=== PATIENT | male | born 1980 | race Hispanic/Latino ===

== ENCOUNTER 2021-04-25 17:06 | Observation (INO) | payer OTHER ==
[~2021-04-25] VITALS: Ht 165.1 cm; Wt 51.9 kg
[2021-04-25 17:08] VITALS: BP 107/66
[2021-04-25 18:47] LABS: BASOPHILS % (AUTO) 1.4 % (0.0-5.0); EOSINOPHILS % (AUTO) 2.1 % (0.0-8.0); LYMPHOCYTES % (AUTO) 30.2 % (21.0-51.0); MEAN CORPUSCULAR HEMOGLOBIN 18.2 pg (27.0-33.0); MEAN CORPUSCULAR HGB CONC 26.1 g/dL (32.0-36.0); MEAN CORPUSCULAR VOLUME 69.5 fL (79-99); MONOCYTES % (AUTO) 15.7 % (3.0-13.0); NEUTROPHILS % (AUTO) 50.4 % (40.0-77.0); PLATELET COUNT (AUTO) 129 K/uL (130-400); RED BLOOD CELL COUNT(AUTO) 2.92 MIL/uL (4.50-6.20); RED CELL DISTRIBUTION WIDTH 21.5 % (11.0-15.5); WHITE BLOOD COUNT (AUTO) 4.8 K/uL (4.8-10.8)
[2021-04-25 18:58] LABS: CREATININE 0.9 mg/dL (0.5-1.5); POTASSIUM 3.8 mmol/L (3.5-5.1)
[2021-04-25 19:00] LABS: HEMATOCRIT 20.3 % (42-54)
[2021-04-25 19:03] LABS: ALBUMIN 3.1 g/dL (3.5-5.0); BILIRUBIN,TOTAL 1.2 mg/dL (0.2-1.0); TOTAL PROTEIN, SERUM 8.4 g/dL (6.0-8.3)
[2021-04-25] MEDS ORDERED: 0.9%NACL 1000ML 1,000 ML IV SCH (19:30)
[2021-04-25 19:33] LABS: PLATELET MORPHOLOGY LARGE PLTS PRESENT
[2021-04-25 20:06] VITALS: BP 126/65
[2021-04-25] MEDS ORDERED: ONDANSETRON 4MG INJ IV PRN (21:00)
[2021-04-25] MEDS: 0.9%NACL 1000ML 1,000 ML IV SCH (22:04)
[2021-04-25] MEDS: FAMOTIDINE 20MG TAB PO SCH (22:27)
[2021-04-26] VITALS (9 sets, daily range): BP systolic 99–138; BP diastolic 40–60
[2021-04-26 00:29] LABS: APPEARANCE,URINE Clear (CLEAR); BILIRUBIN,URINE Small (NEGATIVE); COLOR,URINE Dark Yellow (YELLOW); GLUCOSE, URINE (UA) Negative (NEGATIVE); KETONES,URINE 15 mg/dL (NEGATIVE); LEUKOCYTE ESTERASE ,URINE Negative (NEGATIVE); NITRATE,URINE Negative (NEGATIVE); OCCULT BLOOD,URINE Negative (NEGATIVE); PH,URINE 6.5 (5.0-8.0); PROTEIN,URINE Negative (NEGATIVE)
[2021-04-26 00:36] LABS: BACTERIA,URINE None Seen /HPF (None Seen); RBC,URINE None Seen /HPF (0-1); SQUAMOUS EPITHELIAL CELL,UR Few /HPF (0-2); WBC,URINE None Seen /HPF (0-1)
[2021-04-26 05:24] LABS: BASOPHILS % (AUTO) 0.9 % (0.0-5.0); EOSINOPHILS % (AUTO) 3.4 % (0.0-8.0); HEMATOCRIT 24.5 % (42-54); LYMPHOCYTES % (AUTO) 33.2 % (21.0-51.0); MEAN CORPUSCULAR HEMOGLOBIN 21.4 pg (27.0-33.0); MEAN CORPUSCULAR VOLUME 73.8 fL (79-99); MONOCYTES % (AUTO) 19.1 % (3.0-13.0); NEUTROPHILS % (AUTO) 43.2 % (40.0-77.0); NUCLEATED RED BLOOD CELLS 0.6 % (0.0-0.19); PLATELET COUNT (AUTO) 104 K/uL (130-400); RED BLOOD CELL COUNT(AUTO) 3.32 MIL/uL (4.50-6.20); RED CELL DISTRIBUTION WIDTH 21.8 % (11.0-15.5); WHITE BLOOD COUNT (AUTO) 4.7 K/uL (4.8-10.8)
[2021-04-26 05:33] LABS: CREATININE 0.9 mg/dL (0.5-1.5); MAGNESIUM 1.6 mg/dL (1.80-2.40); PHOSPHORUS 3.5 mg/dL (2.5-4.9); POTASSIUM 3.6 mmol/L (3.5-5.1)
[2021-04-26] MEDS ORDERED: COMPOUND IV MISC 1 EACH IVSOLN MISC PRN (07:00)
[2021-04-26] MEDS: 0.9%NACL 1000ML 1,000 ML IV SCH ×4 (07:00→21:18)
[2021-04-26] MEDS: IRON SUCROSE COMPLEX 100 MG in 0.9%NACL 50ML 50 ML IV SCH (09:10)
[2021-04-26] MEDS: FAMOTIDINE 20MG TAB PO SCH ×2 (09:16→21:18)
[2021-04-26] MEDS ORDERED: SPIR50TA5 PO (21:29)
[2021-04-26] MEDS ORDERED: FURO20TA4 PO (21:29)
[2021-04-27 04:24] VITALS: BP 131/67
[2021-04-27 04:37] LABS: HEMATOCRIT 26.1 % (42-54); MEAN CORPUSCULAR HEMOGLOBIN 21.5 pg (27.0-33.0); MEAN CORPUSCULAR HGB CONC 29.1 g/dL (32.0-36.0); MEAN CORPUSCULAR VOLUME 73.9 fL (79-99); NUCLEATED RED BLOOD CELLS 0.4 % (0.0-0.19); RED BLOOD CELL COUNT(AUTO) 3.53 MIL/uL (4.50-6.20); RED CELL DISTRIBUTION WIDTH 22.4 % (11.0-15.5); WHITE BLOOD COUNT (AUTO) 5.2 K/uL (4.8-10.8)
[2021-04-27 04:48] LABS: CREATININE 0.8 mg/dL (0.5-1.5); POTASSIUM 4.1 mmol/L (3.5-5.1)
[2021-04-27 08:03] VITALS: BP 106/48
[2021-04-27] MEDS: IRON SUCROSE COMPLEX 100 MG in 0.9%NACL 50ML 50 ML IV SCH (09:00)
[2021-04-27 11:34] VITALS: BP 107/51
[2021-04-27] MEDS: FAMOTIDINE 20MG TAB PO SCH ×2 (12:11→20:55)
[2021-04-27 16:29] VITALS: BP 129/72
[2021-04-27] MEDS ORDERED: PEG 3350/NA SULF,BICARB,CL/KCL 4000 ML SOLN ONE (18:14)
[2021-04-27 19:00] VITALS: BP 138/76
[2021-04-27] MEDS: 0.9%NACL 1000ML 1,000 ML IV SCH (23:07)
[2021-04-28] VITALS (14 sets, daily range): BP systolic 100–127; BP diastolic 39–73
[2021-04-28 06:00] LABS: HEMATOCRIT 30.4 % (42-54)
[2021-04-28 06:15] LABS: % IRON SATURATION 7.3 % (30-44)
[2021-04-28] MEDS ORDERED: PROPOFOL 10 MG/ML 20ML VIAL IV ONE (07:42)
[2021-04-28] MEDS ORDERED: LIDOCAINE PF 100MG/5ML (2%) SYRINGE 5ML ONE (07:42)
[2021-04-28] MEDS: FAMOTIDINE 20MG TAB PO SCH (09:00)
[2021-04-28] MEDS: 0.9%NACL 1000ML 1,000 ML IV SCH (09:00)
[2021-04-28] MEDS: IRON SUCROSE COMPLEX 100 MG in 0.9%NACL 50ML 50 ML IV SCH (09:35)
[2021-04-28 09:49] LABS: ALBUMIN 3.3 g/dL (3.5-5.0); CREATININE 0.9 mg/dL (0.5-1.5); POTASSIUM 3.5 mmol/L (3.5-5.1); TOTAL PROTEIN, SERUM 8.4 g/dL (6.0-8.3)
[2021-04-28 09:54] LABS: BASOPHILS % (MANUAL) 4 % (0-2); EOSINOPHILS % (MANUAL) 4 % (1-6); LYMPHOCYTES % (MANUAL) 32 % (22-44); MAN.DIFF COMMENT-IMPRESSION MANUAL DIFFERENTIAL; MONOCYTES % (MANUAL) 10 % (2-9); SEGMENTED NEUTROPHILS % 50 % (40-70)
[2021-04-28 09:58] LABS: MEAN CORPUSCULAR HEMOGLOBIN 21.3 pg (27.0-33.0); MEAN CORPUSCULAR HGB CONC 27.5 g/dL (32.0-36.0); MEAN CORPUSCULAR VOLUME 77.3 fL (79-99); PLATELET COUNT (AUTO) 110 K/uL (130-400); PLATELET MORPHOLOGY COMMENT SLIGHTLY DECREASED; RED CELL DISTRIBUTION WIDTH 23.9 % (11.0-15.5); WHITE BLOOD COUNT (AUTO) 5.8 K/uL (4.8-10.8)
[2021-04-28] MEDS ORDERED: PANT40TA55 PO (12:17)
[2021-04-28] MEDS ORDERED: FERR325T22 PO (12:28)
[2021-04-28] MEDS ORDERED: DIPHENHYDRAMINE HCL 25 MG CAPSULE PO ONE (12:30)
== END 2021-04-28 18:22 | disposition home or self-care (01) ==
LOC: EDH 17:06 → EDHIP 20:51 → EEVIPCON 20:51 → 3BH 04-26 14:58
PROVIDERS: ADMIT Internal Medicine; ATTEND Internal Medicine
DX: D62 Acute posthemorrhagic anemia (principal); Z20.822 Contact with and (suspected) exposure to COVID-19; K74.60 Unspecified cirrhosis of liver; E43 Unspecified severe protein-calorie malnutrition; K44.9 Diaphragmatic hernia without obstruction or gangrene; K63.5 Polyp of colon; K29.01 Acute gastritis with bleeding; R12 Heartburn; Z79.899 Other long term (current) drug therapy; Z98.890 Other specified postprocedural states
CPT/HCPCS: 36415 ×4; 36430 ×2; 43235; 45380; 45385; 71045; 74176; 80048 ×2; 80053 ×2; 81001; 82270; 82607; 82746; 82948; 83540; 83550; 83735; 84100; 84134; 84443; 85025 ×3; 85027; 86850; 86900; 86901; 86923 ×2; 87426; 88305; 96361 ×5; 96365; 96366 ×2; 99285; A4510; A4606; A4620; A4657; G0378 ×62; J1756 ×3; J2001; J2405; J2704; J7030 ×6; P9016 ×2; Q0163